=== PATIENT | female | born 1950 | race Native Hawaiian/Other Pacific Islander ===

== ENCOUNTER 2019-06-04 11:14 | Outpatient (CLI) | payer MEDICARE ==
--- NOTE | 2019-06-07 11:45 | Mammography Report ---
DIGITAL SCREENING MAMMOGRAM WITH CAD, 06/04/2019 INDICATION: Routine screening mammography. TECHNIQUE: Digital bilateral 2D mammography was obtained in the craniocaudal and mediolateral obliq ue projections. This examination was interpreted with the benefit of Computer-Aided Detection analysi s. COMPARISON: 06/02/2018 FINDINGS: Breast Density: The breasts are heterogeneously dense, which may obscure small masses. There is no evidence of dominant mass, suspicious calcifications or architectural distortion in eithe r breast. IMPRESSION: No mammographic evidence of malignancy. Follow up recommendation: Routine yearly BI-RADS Category 1: Negative. A "normal" or negative report should not discourage follow up or biopsy of a clinically significant f inding. A written summary of these findings will be mailed to the patient. The patient will be entered into a mammography reporting system which will generate a reminder letter for the patient's next appointmen t at the appropriate interval. The [employer] recommends yearly mammograms starting at age 40 and continuing as l dimple as a woman is in good health. Breast MRI is recommended for women with an approximate 20-25% or greater lifetime risk of breast cancer, including women with a strong family history of breast or ova lexie cancer or who have been treated for Hodgkin's disease. Signer Name: Keo Bedoya MD Signed: 06/07/2019 11:41 AM Workstation Name: [id number]
== END 2019-06-04 11:15 | disposition home or self-care (01) ==
LOC: SPVWC 11:14
PROVIDERS: ATTEND Obstetrics & Gynecology
DX: Z12.31 Encounter for screening mammogram for malignant neoplasm of breast (principal)
CPT/HCPCS: 77067

== ENCOUNTER 2019-06-29 14:29 | Outpatient (CLI) | payer MEDICARE ==
--- NOTE | 2019-06-29 15:46 | Mammography Report ---
BONE DEXA CLINICAL: Postmenopausal. COMPARISON: 04/19/2016 TECHNIQUE: 2 site bone DEXA performed on an Hologic scanner. FINDINGS: The average BMD of the lumbar spine L1-L4 is 0.807g/cm squared with a T score of -2.2 and a Z score o f -0.2. This compares to 0.823g/cm squared on the last exam and represents a -2.0 % change from previ ous baseline. The average BMD of the left hip is 1.002 g/cm squared with a T score of +0.5and a Z score of +1.9. Th is compares to 0.993 g/cm squared on the last exam and represents a +0.9 % change from the previous b aseline. IMPRESSION: 1. WHO classification: Osteopenia with increased fracture risk based on spine measurements. 2. WHO classification Normal with average fracture risk based on left hip measurements. 3. A modest decline in spine BMD and a modest improvement in left hip BMD compared to the last exam. RECOMMENDATION: Clinical correlation and routine screening. Definitions: BMD equal bone mineral density T score = BMD related to peak bone mass of young adult (Branch expressed an standard deviation) Z score = age-matched BMD expressed in SD World health organization (WHO) diagnostic criteria Normal T score greater than equal to 1 standard deviation Osteopenia T score between -1 and -2.4 standard deviation Osteoporosis T score -2.5 standard deviation or below. Note: BMD is not the only risk factor for fracture; also consider factors such as the patient's age, risk of falling, previous osteoporotic fracture, family history of osteoporotic fractures, current sm oker and low body weight. Z scores are not calculated if greater than 80 years of age. Signer Name: Keo Bedoya MD Signed: 06/29/2019 3:42 PM Workstation Name: [id number]
== END 2019-06-29 14:30 | disposition home or self-care (01) ==
LOC: SPVWC 14:29
PROVIDERS: ATTEND Obstetrics & Gynecology
DX: N95.8 Other specified menopausal and perimenopausal disorders (principal)
CPT/HCPCS: 77080

== ENCOUNTER 2020-07-24 11:08 | Outpatient (CLI) | payer MEDICARE ==
--- NOTE | 2020-07-24 12:15 | Mammography Report ---
DIGITAL SCREENING MAMMOGRAM WITH CAD, 07/24/2020 CLINICAL INFORMATION / INDICATION: Routine screening mammography. TECHNIQUE: Digital bilateral 2D mammography was obtained in the craniocaudal and mediolateral obliqu e projections. This examination was interpreted with the benefit of Computer-Aided Detection analysis . COMPARISON: 06/02/2018 FINDINGS: Breast Density: There are scattered areas of fibroglandular density. No dominant mass, suspicious calcifications, or architectural distortion in either breast. No interval change. IMPRESSION: No mammographic evidence of malignancy. Follow up recommendation: Routine yearly BI-RADS Category 1: Negative. A "normal" or negative report should not discourage follow up or biopsy of a clinically significant f inding. A written summary of these findings will be mailed to the patient. The patient will be entered into a mammography reporting system which will generate a reminder letter for the patient's next appointmen t at the appropriate interval. The [employer] recommends yearly mammograms starting at age 40 and continuing as l dimple as a woman is in good health. Breast MRI is recommended for women with an approximate 20-25% or greater lifetime risk of breast cancer, including women with a strong family history of breast or ova lexie cancer or who have been treated for Hodgkin's disease. Signer Name: Lorene Arzola MD Signed: 07/24/2020 12:10 PM Workstation Name: [id number]
== END 2020-07-24 11:09 | disposition home or self-care (01) ==
LOC: SPVWC 11:08
PROVIDERS: ATTEND Obstetrics & Gynecology
DX: Z12.31 Encounter for screening mammogram for malignant neoplasm of breast (principal)
CPT/HCPCS: 77067

== ENCOUNTER 2021-09-25 13:45 | Outpatient (CLI) | payer MEDICARE ==
--- NOTE | 2021-09-26 18:02 | Mammography Report ---
DIGITAL SCREENING MAMMOGRAM WITH CAD, 09/25/2021 CLINICAL INFORMATION / INDICATION: Routine screening mammography. SCREENING MAMMO Z12.31 TECHNIQUE: Digital bilateral 2D mammography was obtained in the craniocaudal and mediolateral obliqu e projections. This examination was interpreted with the benefit of Computer-Aided Detection analysis . COMPARISON: Prior mammogram 07/24/2020 and 06/04/2019 FINDINGS: Breast Density: There are scattered areas of fibroglandular density. No dominant mass, suspicious calcifications, or architectural distortion in either breast. There has been no significant change compared with the prior examinations. IMPRESSION: No mammographic evidence of malignancy. Follow up recommendation: Routine yearly BI-RADS Category 1: NEGATIVE A "normal" or negative report should not discourage follow up or biopsy of a clinically significant f inding. A written summary of these findings will be mailed to the patient. The patient will be entered into a mammography reporting system which will generate a reminder letter for the patient's next appointmen t at the appropriate interval. The [employer] recommends yearly mammograms starting at age 40 and continuing as l dimple as a woman is in good health. Breast MRI is recommended for women with an approximate 20-25% or greater lifetime risk of breast cancer, including women with a strong family history of breast or ova lexie cancer or who have been treated for Hodgkin's disease. Signer Name: Jing Ochoa MD Signed: 09/26/2021 5:57 PM Workstation Name: [id number]
== END 2021-09-25 13:46 | disposition home or self-care (01) ==
LOC: SPVWC 13:45
PROVIDERS: ATTEND Obstetrics & Gynecology
DX: Z12.31 Encounter for screening mammogram for malignant neoplasm of breast (principal)
CPT/HCPCS: 77067

== ENCOUNTER 2021-10-03 11:05 | Outpatient (CLI) | payer MEDICARE ==
--- NOTE | 2021-10-03 12:41 | Mammography Report ---
DEXA BONE DENSITY SCAN INDICATION / CLINICAL INFORMATION: OSTEOPENIA OF MULTIPLE SITES. 70 years Female COMPARISON: 09/25/2021 LUMBAR SPINE, L1-L4: - Bone mineral density (BMD) = 0.819 g/cm2. - T-score = -2.1 - Change (%) since most recent prior (if available): 1.4% increase LEFT HIP, NECK : - Bone mineral density (BMD) = 0.754 g/cm2. - T-score = -1.9 - Change (%) since most recent prior (if available): 2.3% decrease in the femoral neck. There is a 7 .9% decrease in bone mineral density in the total hip IMPRESSION: 1. WHO Classification: Osteopenia. Fracture Risk: Increased. 2. 10-Year Fracture Risk (FRAX) = Major Osteoporotic Not reported.% / Hip: Not reported.% FRAX generally not reported for patients with normal or osteoporotic BMD, in say-fvvaedq-[id number] venkatesh ents younger than age 50, or in patients undergoing pharmacotherapy BMD Reporting Guidelines (ISCD, 2015) BMD Reporting in Postmenopausal Women and in Men Age 50 and Older - T-scores are preferred. - The WHO densitometric classification is applicable. BMD Reporting in Females Prior to Menopause and in Males Younger Than Age 50 - Z-scores, not T-scores, are preferred. This is particularly important in children. - A Z-score of -2.0 or lower is defined as below the expected range for age, and a Z-score above -2.0 is within the expected range for age. - Osteoporosis cannot be diagnosed in men under age 50 on the basis of BMD alone. - The WHO diagnostic criteria may be applied to women in the menopausal transition. http://www.iscd.org/official-positions/1639-fvnv-iitnxaop-positions-adult/ Signer Name: Yuri Colunga MD Signed: 10/03/2021 12:36 PM Workstation Name: [id number]
== END 2021-10-03 11:06 | disposition home or self-care (01) ==
LOC: SPVWC 11:05
PROVIDERS: ATTEND Family Medicine
DX: M85.88 Other specified disorders of bone density and structure, other site (principal)
CPT/HCPCS: 77080